=== PATIENT | female | born 1955 | race Asian ===

== ENCOUNTER 2019-02-16 13:02 | Emergency (ER) | payer OTHER ==
[~2019-02-16] VITALS: Wt 56.8 kg
[~2019-02-16 13:02] MED LIST: ALPR0.25 PO; GLIM2TAB PO; HYDR-3671 PO; LOSA100T15 PO; SIMV10TA PO; SITA1TAB5 PO
[2019-02-16] MEDS ORDERED: SOD CHLORIDE 0.9% 1,000 ML IV STA (16:08)
[2019-02-16] MEDS ORDERED: LIDOCAINE/MYLANTA 40 ML BTL PO STA (16:08)
[2019-02-16] MEDS ORDERED: ONDANSETRON 4 MG INJ IV STA (16:08)
[2019-02-16] MEDS ORDERED: PANTOPRAZOLE 40 MG INJ IV ONE (16:30)
[2019-02-16] MEDS ORDERED: PANT40TA3 PO ×2 (17:27→18:07)
[2019-02-16] MEDS ORDERED: ONDA4TAB14 PO (18:06)
[2019-02-16 18:26] VITALS: BP 120/55; PULSE 64; RESP 18
--- NOTE | 2019-02-16 19:02 | ERD ---
ER Documentation Chief Complaint Chief Complaint dizziness and diarrhea for the past week. now feeling dizzy and gen fatigue HPI Patient is a 63-year-old female with hypertension and diabetes who presents with abdominal pain. The patient said that she has had 5 to 6 months where she feels acid after eating. She tried Pepcid. She had abdominal pain and bloating. On she felt dizzy. She had nausea and vomiting. The symptoms come and go. She was seen at an urgent care recently but the pain was still there today so she came to the emergency department. Upon review of old medical records this is the patient's third visit to the ER since 2016. ROS All systems reviewed and are negative except as per history of present illness. Medications Home Meds Active Scripts Pantoprazole* (Protonix*) 40 Mg Tablet.dr, 40 MG PO DAILY, #20 TAB Prov:CRYSTAL PERDOMO MD 02/16/19 Ondansetron (Ondansetron Odt) 4 Mg Tab.rapdis, 4 MG PO Q6H PRN for NAUSEA AND/OR VOMITING, #10 TAB Prov:CRYSTAL PERDOMO MD 02/16/19 Pantoprazole* (Protonix*) 40 Mg Tablet.dr, 40 MG PO DAILY, #20 TAB Prov:CRYSTAL PERDOMO MD 02/16/19 Alprazolam* (Xanax*) 0.25 Mg Tablet, 0.25 MG PO Q8H PRN for ANXIETY, #10 TAB Prov:YASMEEN EDMONDSON 09/20/18 Hydralazine Hcl* (Hydralazine Hcl*) 25 Mg Tab, 25 MG PO Q6H PRN for ELEVATED BLOOD PRESSURE, #60 TAB Prov:YASMEEN EDMONDSON 09/20/18 Reported Medications Glimepiride* (Glimepiride*) 2 Mg Tablet, 2 MG PO WITH BREAKFAST DINNE, TAB 09/20/18 Losartan Potassium* (Losartan Potassium*) 100 Mg Tablet, 100 MG PO DAILY, TAB 09/20/18 Simvastatin* (Zocor*) 10 Mg Tablet, 10 MG PO QHS, #30 TAB 09/20/18 Sitagliptin Phos/Metformin HCl (Janumet 50-1,000 mg Tablet) 1 Each Tablet, 1 EACH PO BID WITH MEALS, TAB 09/20/18 Allergies Allergies: Coded Allergies: No Known Allergy (Unverified , 09/20/18) PMhx/Soc History of Surgery: Yes (gallbladder removal when 2001, tendon cysts removal 1988) Anesthesia Reaction: No Hx Neurological Disorder: No Hx Respiratory Disorders: Yes (TB) Hx Cardiac Disorders: No Hx Psychiatric Problems: No Hx Miscellaneous Medical Probl: Yes (DM, HTN) Hx Alcohol Use: No Hx Substance Use: No Hx Tobacco Use: No Smoking Status: Never smoker FmHx Family History: diabetes Physical Exam Vitals Vital Signs Date Temp Pulse Resp B/P (MAP) Pulse Ox O2 O2 Flow FiO2 Time Delivery Rate 02/16/19 98.0 64 18 120/55 98 Room Air 18:26 (76) 02/16/19 98.3 76 16 119/52 98 Room Air 16:08 (74) 02/16/19 98.5 97 18 132/59 98 13:04 (83) Physical Exam Const: No acute distress Head: Atraumatic Eyes: Normal Conjunctiva ENT: Normal External Ears, Nose and Mouth. Neck: Full range of motion. No meningismus. Resp: Clear to auscultation bilaterally Cardio: Regular rate and rhythm, no murmurs Abd: Soft, non tender, non distended. Normal bowel sounds Skin: No petechiae or rashes Back: No midline or flank tenderness Ext: No cyanosis, or edema Neur: Awake and alert Psych: Normal Mood and Affect Result Diagram: 02/16/19 1631 02/16/19 1631 Results 24 hrs Laboratory Tests Test 02/16/19 16:31 White Blood Count 9.6 10^3/ul Red Blood Count 4.64 10^6/ul Hemoglobin 13.6 g/dl Hematocrit 40.0 % Mean Corpuscular Volume 86.2 fl Mean Corpuscular Hemoglobin 29.3 pg Mean Corpuscular Hemoglobin Concent 34.0 g/dl Red Cell Distribution Width 13.3 % Platelet Count 321 10^3/UL Mean Platelet Volume 9.1 fl Immature Granulocytes % 0.300 % Neutrophils % 59.3 % Lymphocytes % 29.5 % Monocytes % 7.2 % Eosinophils % 3.0 % Basophils % 0.7 % Nucleated Red Blood Cells % 0.0 /100WBC Immature Granulocytes # 0.030 10^3/ul Neutrophils # 5.7 10^3/ul Lymphocytes # 2.8 10^3/ul Monocytes # 0.7 10^3/ul Eosinophils # 0.3 10^3/ul Basophils # 0.1 10^3/ul Nucleated Red Blood Cells # 0.0 10^3/ul Sodium Level 142 mmol/L Potassium Level 4.4 mmol/L Chloride Level 101 mmol/L Carbon Dioxide Level 28 mmol/L Anion Gap 13 Blood Urea Nitrogen 27 mg/dl Creatinine 1.04 mg/dl Est Glomerular Filtrat Rate mL/min 53 mL/min Glucose Level 114 mg/dl Calcium Level 10.4 mg/dl Total Bilirubin 0.8 mg/dl Direct Bilirubin 0.00 mg/dl Indirect Bilirubin 0.8 mg/dl Aspartate Amino Transf (AST/SGOT) 39 IU/L Alanine Aminotransferase (ALT/SGPT) 44 IU/L Alkaline Phosphatase 64 IU/L Troponin I < 0.012 ng/ml Total Protein 8.6 g/dl Albumin 5.1 g/dl Globulin 3.50 g/dl Albumin/Globulin Ratio 1.45 Lipase 247 U/L Current Medications Medications Dose Sig/Caio Start Time Status Last (Trade) Ordered Route PRN Stop Time Admin Dose Reason Admin Sodium 1,000 ml @ Q1H STAT 02/16/19 DC 02/16/19 Chloride 1,000 mls/hr IV 16:08 16:30 02/16/19 17:07 Ondansetron 4 mg ONCE STAT 02/16/19 DC 02/16/19 HCl (Zofran IV 16:08 16:30 Inj) 02/16/19 16:10 40 ml ONCE STAT 02/16/19 DC 02/16/19 Miscellaneous PO 16:08 16:29 Medication 02/16/19 16:10 (Gi Cocktail (2)) 40 mg ONCE ONCE 02/16/19 DC 02/16/19 Pantoprazole IV 16:30 16:30 (Protonix 02/16/19 16:31 Iv) Procedures/MDM CT abdomen pelvis negative for surgical process per radiology. EKG read by me: Rate/Rhythm: Regular rate and rhythm at a normal rate Intervals: Normal Impression: No evidence of ischemia or arrhythmia Patient is a 63-year-old female who presents with abdominal pain and feeling of acid after eating. Laboratory studies are basically normal and CT scan shows no signs of acute infection. At this point I doubt appendicitis, cholecystitis, pancreatitis, or bowel obstruction. I doubt acute coronary syndrome. I believe outpatient management is appropriate but the patient will need close follow-up with her primary doctor within 24 hours for evaluation. She will be given a prescription for Protonix and Zofran. Departure Diagnosis: Primary Impression: Reflux gastritis Additional Impression: Vomiting Vomiting type: unspecified Vomiting Intractability: non-intractable Nausea presence: with nausea Qualified Codes: R11.2 - Nausea with vomiting, unspecified Condition: Fair Patient Instructions: Vomiting (6Y-Adult) Referrals: Your doctor Additional Instructions: Call your primary care doctor TOMORROW for an appointment during the next 1-2 days.See the doctor sooner or return here if your condition worsens before your appointment time. CRYSTAL PERDOMO MD Feb 16, 2019 19:02
== END 2019-02-16 18:29 | disposition home or self-care (01) ==
LOC: E/R 13:02
DX: K29.70 Gastritis, unspecified, without bleeding (principal); I10 Essential (primary) hypertension; E11.9 Type 2 diabetes mellitus without complications; Z79.84 Long term (current) use of oral hypoglycemic drugs
CPT/HCPCS: 36415; 74176; 80053; 83690; 84484; 85025; 93005; 96374; 96375; C9113; J2405; J7030; Z7502; Z7610